=== PATIENT | male | born 2000 | race African-American/Black ===

== ENCOUNTER 2023-09-04 16:37 | Emergency (ER) | payer SELFPAY ==
[~2023-09-04] VITALS: Ht 180.3 cm; Wt 65.9 kg
[2023-09-04 16:45] VITALS: TEMP 99.4
[2023-09-04 17:58] LABS: BASOPHILS % (AUTO) 0.7 % (0.0-2.0); EOSINOPHILS % (AUTO) 1.6 % (1.0-6.0); HEMATOCRIT 47.7 % (41-53); HEMOGLOBIN 16.1 g/dL (13.5-17.5); LYMPHOCYTES # (AUTO) 1.8 K/uL (1.0-4.8); MEAN CORPUSCULAR HEMOGLOBIN 30.4 pg (26.0-34.0); MEAN CORPUSCULAR HGB CONC 33.7 G/dL (31.0-37.0); MEAN CORPUSCULAR VOLUME 90 fL (80-100); MONOCYTES # (AUTO) 0.8 K/uL (0.1-1.0); MONOCYTES % (AUTO) 9.9 % (2.0-9.0); NEUTROPHILS # (AUTO) 5.4 K/uL (1.8-7.7); NEUTROPHILS % (AUTO) 65.8 % (40.0-70.0); PLATELET COUNT (AUTO) 198 K/uL (150-450); RED CELL DISTRIBUTION WIDTH 13.1 % (11.5-14.5); WHITE BLOOD COUNT (AUTO) 8.3 K/uL (4.5-11.0)
[2023-09-04 18:07] LABS: ANION GAP 8 mmol/L (8-16); CALCIUM, TOTAL 9.5 mg/dL (8.8-10.5); CARBON DIOXIDE 30 mmol/L (22-29); CHLORIDE 101 mmol/L (98-107); CREATININE 1.18 mg/dL (0.60-1.30); GLOMERULAR FILTR. RATE CALC > 60 mL/min (>60); GLUCOSE,RANDOM 106 mg/dL (70-110); POTASSIUM 5.1 mmol/L (3.5-5.1); SODIUM SERUM 139 mmol/L (136-145); UREA NITROGEN, BLOOD 19 mg/dL (7-18)
[2023-09-04 18:12] LABS: ALANINE AMINOTRANSFERASE 28 U/L (12-78); ALBUMIN 4.2 g/dL (3.4-5.0); ALKALINE PHOSPHATASE 53 U/L (46-116); ASPARTATE AMINOTRANSFERASE 19 U/L (15-37); BILIRUBIN,TOTAL 0.5 mg/dL (0.1-1.0); LIPASE 32 U/L (16-77); TOTAL PROTEIN, SERUM 8.2 g/dL (6.4-8.2)
[2023-09-04 18:40] LABS: COVID AG,FIA SOURCE NASAL SWAB
[2023-09-04 19:08] LABS: APPEARANCE,URINE CLEAR (CLEAR); BILIRUBIN,URINE NEGATIVE (NEGATIVE); COLOR,URINE LIGHT YELLOW (YELLOW); GLUCOSE, URINE (UA) NEGATIVE (NEGATIVE); KETONES,URINE NEGATIVE (NEGATIVE); LEUKOCYTE ESTERASE ,URINE NEGATIVE (NEGATIVE); NITRATE,URINE NEGATIVE (NEGATIVE); OCCULT BLOOD,URINE NEGATIVE (NEGATIVE); PROTEIN,URINE TRACE mg/dL (NEGATIVE); SPECIFIC GRAVITIY, URINE 1.029 (1.003-1.030); UROBILINOGEN,URINE <=1.0 mg/dL (<=1.0)
[2023-09-04 19:11] LABS: SARS-COV2 (COVID) ANTIGEN,FIA Negative (Negative)
[2023-09-04 19:12] LABS: INFLUENZA TYPE A NEGATIVE FOR TYPE A (NEGATIVE); INFLUENZA TYPE B NEGATIVE FOR TYPE B (NEGATIVE); RESPIRATORY SYNCYTIAL VIRS,FIA NEGATIVE (Negative)
[2023-09-04] MEDS ORDERED: POLY119P3 PO (20:55)
[2023-09-04 21:10] VITALS: BP 118/67; PULSE 90; RESP 17
== END 2023-09-04 21:11 | disposition home or self-care (01) ==
LOC: EMS 16:40
DX: K59.00 Constipation, unspecified (principal); Z20.822 Contact with and (suspected) exposure to COVID-19
CPT/HCPCS: 99284; 87426; 80053; 83690; 87420; 85025; 87804; 36415; 74022; 81003; G0480

== ENCOUNTER 2024-04-05 11:14 | Emergency (ER) | payer BC, OTHER ==
[~2024-04-05] VITALS: Ht 170.2 cm; Wt 63.6 kg
[~2024-04-05 11:14] MED LIST: RISP-31 PO
[2024-04-05 11:19] VITALS: BP 124/63; PULSE 88; RESP 18; TEMP 98.6; O2SAT 99
[2024-04-05 11:51] LABS: COVID AG,FIA SOURCE NASAL SWAB
[2024-04-05] MEDS: AMOX TR/POT CLAV 875 MG/125 MG TABLET PO ONE (11:53)
[2024-04-05] MEDS: IBUPROFEN 600 MG TABLET PO ONE (11:53)
[2024-04-05] MEDS ORDERED: IBUP-1492 PO (11:54)
[2024-04-05] MEDS ORDERED: AMOX-457 PO (11:54)
[2024-04-05 12:15] LABS: RAPID GROUP A STREP NEGATIVE (NEGATIVE)
[2024-04-05 12:20] LABS: SARS-COV2 (COVID) ANTIGEN,FIA Negative (Negative)
[2024-04-05 12:21] LABS: INFLUENZA TYPE A NEGATIVE FOR TYPE A (NEGATIVE); INFLUENZA TYPE B NEGATIVE FOR TYPE B (NEGATIVE)
== END 2024-04-05 12:18 | disposition home or self-care (01) ==
LOC: EMS 11:14
DX: J02.9 Acute pharyngitis, unspecified (principal); F20.9 Schizophrenia, unspecified; F12.90 Cannabis use, unspecified, uncomplicated; Z20.822 Contact with and (suspected) exposure to COVID-19
CPT/HCPCS: 87430; 87804; 99283